=== PATIENT | male | born 1985 | race Caucasian/White ===

== ENCOUNTER 2025-01-11 07:03 | Emergency (ER) | payer SELFPAY ==
[~2025-01-11] VITALS: Ht 172.7 cm; Wt 74.8 kg
[2025-01-11 07:07] VITALS: O2SAT 97
[2025-01-11] MEDS ORDERED: TOPUD PO (08:38)
[2025-01-11 09:10] VITALS: BP 137/98; PULSE 66; RESP 18; TEMP 36.7; O2SAT 98
== END 2025-01-11 09:13 | disposition home or self-care (01) ==
LOC: ER 07:03
DX: S00.93XA Contusion of unspecified part of head, initial encounter (principal); M25.512 Pain in left shoulder; M54.2 Cervicalgia; V89.2XXA Person injured in unspecified motor-vehicle accident, traffic, initial encounter; Y93.89 Activity, other specified; Y92.89 Other specified places as the place of occurrence of the external cause; Y99.8 Other external cause status
CPT/HCPCS: 73030; 99284